=== PATIENT | male | born 1945 | race Caucasian/White ===

== ENCOUNTER 2017-05-12 12:21 | Inpatient (IN) | payer MEDICARE ==
[~2017-05-12] VITALS: Ht 172.7 cm; Wt 80.6 kg
[2017-05-12 12:29] VITALS: BP 151/67; PULSE 84; RESP 16; TEMP 98.5; O2SAT 94
[2017-05-12] MEDS ORDERED: DONE10TA7 PO (13:10)
[2017-05-12] MEDS ORDERED: METO25TA3 PO (13:10)
[2017-05-12] MEDS ORDERED: LORA-474 PO (13:10)
[2017-05-12] MEDS ORDERED: NAME10TA PO (13:10)
[2017-05-12] MEDS ORDERED: GABA400C5 PO (13:10)
[2017-05-12] MEDS ORDERED: ZOLO50TA PO (13:10)
[2017-05-12 13:43] LABS: AUTOMATED NEUTROPHIL # 5.8 TH/MM3 (1.8-7.7); BASOPHIL # 0.1 TH/MM3 (0-0.2); BASOPHIL % 0.7 % (0.0-2.0); EOSINOPHIL # 0.2 TH/MM3 (0-0.4); EOSINOPHIL % 2.6 % (0.0-4.0); HEMATOCRIT 36.4 % (39.0-51.0); HEMO FLAGS DIFF FINAL; LYMPH % 30.1 % (9.0-44.0); LYMPHOCYTE # 2.9 TH/MM3 (1.0-4.8); MEAN CELL VOLUME 87.9 FL (80.0-100.0); MONO % 5.5 % (0.0-8.0); NEUT % 61.1 % (16.0-70.0); PLATELET COUNT 410 TH/MM3 (150-450); RED BLOOD COUNT 4.14 MIL/MM3 (4.50-5.90); RED CELL DISTRIBUTION WIDTH 13.7 % (11.6-17.2); WHITE BLOOD COUNT 9.6 TH/MM3 (4.0-11.0)
--- NOTE | 2017-05-12 14:02 | PD ---
HPI Chief Complaint: Psychiatric Symptoms Time Seen by Provider: 12:47 Travel History International Travel<30 days: No Contact w/Intl Traveler<30days: No Traveled to known affect area: No History of Present Illness HPI 71-year-old male was Mcbride acted and brought in for psychiatric evaluation. Patient was reportedly threatened to harm himself. Patient has history of depression. Patient however upon arrival to ED stated he does not want to harm himself. Patient states that he was just talking. Patient denies any headache. Patient denies any chest pain or shortness of breath. Patient denies abdominal pain. Patient denies any focal weakness and numbness of extremity. Patient states that he had 3 beers today. Patient denies any illicit drug abuse. [facility] Social History Alcohol Use: Yes (REPORTS RARE USE) Tobacco Use: Yes Substance Use: No (MARIJUANA) Allergies-Medications (Allergen,Severity, Reaction): Coded Allergies: No Known Allergies (Unverified , 05/12/17) Reported Meds & Prescriptions Reported Meds & Active Scripts Active Reported Gabapentin 400 Mg Cap 400 Cap PO BID Metoprolol Tartrate 25 Mg Tab 12.5 Mg PO BID Donepezil 10 Mg Tab 10 Mg PO HS Ativan (Lorazepam) 1 Mg Tab 1 Mg PO BID PRN Zoloft (Sertraline HCl) 50 Mg Tab 50 Mg PO DAILY Namenda (Memantine) 10 Mg Tab 10 Mg PO BID Review of Systems General / Constitutional: No: Fever Eyes: No: Visual changes HENT: No: Headaches Cardiovascular: No: Chest Pain or Discomfort Respiratory: No: Shortness of Breath Gastrointestinal: No: Abdominal Pain Genitourinary: No: Dysuria Musculoskeletal: No: Pain Skin: No Rash Neurologic: No: Weakness Psychiatric: No: Depression Endocrine: No: Polydipsia Hematologic/Lymphatic: No: Easy Bruising Physical Exam Narrative GENERAL: Well-nourished, well-developed patient. SKIN: Focused skin assessment warm/dry. HEAD: Normocephalic. EYES: No scleral icterus. No injection or drainage. NECK: Supple, trachea midline. No JVD or lymphadenopathy. CARDIOVASCULAR: Regular rate and rhythm without murmurs, gallops, or rubs. RESPIRATORY: Breath sounds equal bilaterally. No accessory muscle use. GASTROINTESTINAL: Abdomen soft, non-tender, nondistended. MUSCULOSKELETAL: No cyanosis, or edema. BACK: Nontender without obvious deformity. No CVA tenderness. Neurologic exam: Patient is awake and alert oriented to place and person. Patient moves all extremity well. No obvious focal neurological deficit. Data Data Last Documented VS Vital Signs Date Time Temp Pulse Resp B/P Pulse Ox O2 Delivery O2 Flow Rate FiO2 05/12/17 12:29 98.5 84 16 151/67 94 Orders Complete Blood Count With Diff (05/12/17 13:13) Comprehensive Metabolic Panel (05/12/17 13:13) Psych Screen (05/12/17 13:13) Alcohol (Ethanol) (05/12/17 13:58) Labs Laboratory Tests Test 05/12/17 13:00 White Blood Count 9.6 TH/MM3 Red Blood Count 4.14 MIL/MM3 Hemoglobin 12.0 GM/DL Hematocrit 36.4 % Mean Corpuscular Volume 87.9 FL Mean Corpuscular Hemoglobin 29.0 PG Mean Corpuscular Hemoglobin 33.0 % Concent Red Cell Distribution Width 13.7 % Platelet Count 410 TH/MM3 Mean Platelet Volume 7.5 FL Neutrophils (%) (Auto) 61.1 % Lymphocytes (%) (Auto) 30.1 % Monocytes (%) (Auto) 5.5 % Eosinophils (%) (Auto) 2.6 % Basophils (%) (Auto) 0.7 % Neutrophils # (Auto) 5.8 TH/MM3 Lymphocytes # (Auto) 2.9 TH/MM3 Monocytes # (Auto) 0.5 TH/MM3 Eosinophils # (Auto) 0.2 TH/MM3 Basophils # (Auto) 0.1 TH/MM3 CBC Comment DIFF FINAL Differential Comment Sodium Level 139 MEQ/L Potassium Level 4.2 MEQ/L Chloride Level 106 MEQ/L Carbon Dioxide Level 25.4 MEQ/L Anion Gap 8 MEQ/L Blood Urea Nitrogen 8 MG/DL Creatinine 1.07 MG/DL Estimat Glomerular Filtration 68 ML/MIN Rate Random Glucose 96 MG/DL Calcium Level 8.5 MG/DL Total Bilirubin 0.1 MG/DL Aspartate Amino Transf 18 U/L (AST/SGOT) Alanine Aminotransferase 19 U/L (ALT/SGPT) Alkaline Phosphatase 80 U/L Total Protein 7.8 GM/DL Albumin 3.3 GM/DL Ethyl Alcohol Level 81 MG/DL MDM Medical Decision Making Medical Screen Exam Complete: Yes Emergency Medical Condition: Yes Interpretation(s) 1540 p.m. CBC within normal limit. CMP within normal limit. Alcohol 81 Differential Diagnosis Differential diagnosis including organic brain syndrome, depression, suicidal. Narrative Course 71-year-old male was Mcbride acted after threatened to harm himself. 1541 PM. Patient is medical cleared for psychiatric evaluation and disposition. Constantine De Anda MD May 12, 2017 14:02
[2017-05-12 14:10] LABS: ALT (GPT) 19 U/L (12-78); ANION GAP 8 MEQ/L (5-15); AST (GOT) 18 U/L (15-37); BICARBONATE 25.4 MEQ/L (21.0-32.0); BLOOD UREA NITROGEN 8 MG/DL (7-18); CHLORIDE 106 MEQ/L (98-107); GLOMERULAR FILTRATION RATE 68 ML/MIN (>89); POTASSIUM 4.2 MEQ/L (3.5-5.1); SODIUM (NA) 139 MEQ/L (136-145)
[2017-05-12 14:12] LABS: ALKALINE PHOSPHATASE 80 U/L (45-117); TOTAL BILIRUBIN ADULT 0.1 MG/DL (0.2-1.0)
[2017-05-12 16:46] VITALS: BP 132/68; PULSE 80; RESP 18; O2SAT 98
[2017-05-12 18:09] VITALS: BP 132/68; PULSE 80; RESP 18; O2SAT 80
[2017-05-12] MEDS ORDERED: PILL SPLITTER OTHER PRN (19:45)
[2017-05-12] MEDS ORDERED: FLUMAZENIL 0.5 MG/5 ML VIAL IV PUSH PRN (19:45)
[2017-05-12] MEDS ORDERED: LORazepam 1 MG TAB PO PRN (19:45)
[2017-05-12] MEDS ORDERED: LORazepam 2 MG/ML VIAL IV PUSH PRN ×4 (19:45)
[2017-05-12] MEDS ORDERED: LORazepam 2 MG TAB PO PRN (19:45)
[2017-05-12 19:47] VITALS: O2SAT 95
[2017-05-12] MEDS: SERTRALINE HCL 50 MG TAB PO SCH (19:53)
[2017-05-12] MEDS ORDERED: diphenhydrAMINE HCL 50 MG CAP - HS PRN PO (20:00)
[2017-05-12] MEDS ORDERED: ALUMINUM/MAGNESIUM/SIMETH 30 ML CUP PO PRN (20:00)
[2017-05-12] MEDS ORDERED: diphenhydrAMINE HCL 50 MG/ML VIAL - HS PRN IM (20:00)
[2017-05-12] MEDS ORDERED: MAGNESIUM HYDROXIDE SUSP 30 ML CUP PO PRN (20:00)
[2017-05-12] MEDS ORDERED: ACETAMINOPHEN 325 MG TAB PO PRN (20:00)
[2017-05-12] MEDS: GABAPENTIN 400 MG CAP PO SCH (20:46)
[2017-05-12] MEDS: METOPROLOL TARTRATE 25 MG TAB PO SCH (20:46)
[2017-05-12] MEDS: MEMANTINE HCL 10 MG TAB PO SCH (20:47)
[2017-05-12] MEDS ORDERED: DONEPEZIL HCL 5 MG TAB PO SCH (21:00)
[2017-05-12 21:07] VITALS: BP 132/60; PULSE 74; RESP 18; TEMP 96.5; O2SAT 95
[2017-05-13 06:23] VITALS: BP 122/58; PULSE 66; RESP 16; TEMP 97.2; O2SAT 96
[2017-05-13 08:52] LABS: ANION GAP 5 MEQ/L (5-15); BICARBONATE 29.5 MEQ/L (21.0-32.0); BLOOD UREA NITROGEN 11 MG/DL (7-18); CHLORIDE 106 MEQ/L (98-107); GLOMERULAR FILTRATION RATE 81 ML/MIN (>89); POTASSIUM 4.1 MEQ/L (3.5-5.1); SODIUM (NA) 140 MEQ/L (136-145)
[2017-05-13 08:56] LABS: HDL CHOLESTEROL 33.8 MG/DL (40.0-60.0); LDL CHOLESTEROL 114 MG/DL (0-99)
[2017-05-13] MEDS: MEMANTINE HCL 10 MG TAB PO SCH ×2 (08:57→21:23)
[2017-05-13] MEDS: GABAPENTIN 400 MG CAP PO SCH ×2 (08:57→21:00)
[2017-05-13] MEDS: SERTRALINE HCL 50 MG TAB PO SCH (08:57)
[2017-05-13] MEDS: METOPROLOL TARTRATE 25 MG TAB PO SCH ×2 (08:58→21:00)
[2017-05-13] MEDS: NICOTINE 21 MG/24 HR PATCH T-DERMAL SCH (08:58)
[2017-05-13] MEDS ORDERED: hydrOXYzine HCL 50 MG TAB PO PRN (11:45)
[2017-05-13] MEDS ORDERED: ALUMINUM/MAGNESIUM/SIMETH 30 ML CUP PO PRN (11:45)
[2017-05-13] MEDS ORDERED: diphenhydrAMINE HCL 50 MG CAP PO PRN (11:45)
[2017-05-13] MEDS ORDERED: ACETAMINOPHEN 325 MG TAB PO PRN (11:45)
[2017-05-13] MEDS ORDERED: MAGNESIUM HYDROXIDE SUSP 30 ML CUP PO PRN (11:45)
--- NOTE | 2017-05-13 12:00 | HHI.HP ---
Provisional Diagnosis Admission Date May 12, 2017 at 18:47 [place]. 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 Express and informed consent means consent voluntarily given in writing, by a competent person, after sufficient explanation and disclosure of the subject matter involved to enable the person to make a knowing and willful decision without any element of force, fraud, deceit, duress, or other form of constraint or coercion. This person is 18 years of age or older, is not now known to be incompetent to consent to treatment with a guardian advocate, and does not have a health care surrogate or proxy currently making medical treatment decisions. I have found this person to be one of the following: [] Competent to provide express and informed consent, as defined above, for voluntary admission to this facility and is competent to provide express and informed consent for treatment. He/she has the consistent capacity to make well reasoned, willful, and knowing decisions concerning his or her medical or mental health treatment. The person fully and consistently understands the purpose of the admission for examination/placement and is fully capable of personally exercising all rights assured [place] [] Incompetent to provide express and informed consent to voluntary admission, and this is incompetent to provide express and informed consent to treatment. The person must be transferred to involuntary status and a petition for a guardian advocate filed with the Circuit Court. [xx] Refusing to provide express and informed consent to voluntary admission but is competent to provide express and informed consent for treatment. The person must be discharged or transferred to involuntary status. Form shall be completed within 24 hours of a person's arrival at the receiving facility and filed in the clinical record of each person: 1. Admitted on a voluntary basis 2. Permitted to provide express and informed consent to his/her own treatment 3. Allowed to transfer from involuntary to voluntary status 4. Prior to permitting a person to consent to his or her own treatment after having been previously found incompetent to consent to treatment. History of Present Illness Capacity: Lacks Capacity (patient less capacity to sign for admission, has capacity to sign for medications) HPI Patient is a 71-year-old white male who comes the ED under Mcbride act by the [facility]'s office dated 05/12/17 at 11:30 AM the document reviewed essentially stated that contact was made with Lisandro advised that he is not taking his prescribed medication (antidepressant) but today he advised that he had taken sleeping medication and drank approximately 3 beers. Amelia Briggs was on the scene advised that checked made the comment that he doesn't care and if he dies that he is going to keep drinking. Amelia also stated that checked damion fist at her advised that he has never had a woman but she will be the first. I have been asked Lisandro if he made the statement that he doesn't care if he dies and he stated that he did. Being that Lisandro mixed medication and alcohol and refuses to take his antidepressants he was placed under Mcbride act. Without proper care it is believed that check will attempt to harm himself or others. Patient seen screened in the ED blood alcohol level of 81, there is no urine toxicology done. Patient is transferred to the unit for further care and attention. Patient was seen in the small office with nurse Garrido present throughout session. Patient was alert irritable challenging demanding and somewhat entitled. He was minimizing and rationalizing all of this behaviors as described in the Mcbride act and then the psychiatric screening. Told his blood alcohol level he basically refused to accept it stating he'll he had 2 beers. 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 Later on in the interview he acknowledged being in a detox the end of [address] [facility]. He does acknowledge being an alcoholic he states is been a multiple detoxes multiple rehabs has blacked out and passed out from drinking, he states he has had at least 2 or 3 or 4 DUIs in the past with incarceration. He denies other legal issues. He states his change as needed [place]. He denies any physical or sexual abuse as a child. He denies having any children of his own. He states he lives though woman" daughter. But he does have a second cousin that he calls his stepdaughter. Patient also acknowledges occasional marijuana use the last being about a week ago. He is vague contradictory about any past psychiatric contact though he is prescribed Zoloft per the med reconciliation. Is also vague about any past medical history. Though he does state that he supposedly her doctors talking was hospitalized a few years ago stated that he was going to and 3 days. Today he denies suicidality homicidality voices or visions. Though there is a somewhat disorganized manner and his speech is quite contradictory times somewhat confusing. At this time I feel patient does meet criteria for further observation assessment under the Mcbride act. We have also initiated the ciwa protocol with them he did receive a dose of Ativan under that about 9 PM last night. I feel and further observation for withdrawal symptoms and monitor his mental status is advisable for at least another 24 hours. When I would the patient this he became somewhat angry asked to see his retail inventory control clerk immediately I told him he has a right to contact his retail inventory control clerk. He later threatened to ana cristina all of us. In any event we'll continue this hospitalization we'll continue the ciwa protocol and reassess tomorrow morning we'll continues medications per the med reconciliation Review of Systems Constitutional: DENIES: Diaphoretic episodes, Fatigue, Fever, Weight gain, Weight loss, Chills, Dizziness, Change in appetite, Night Sweats Endocrine: DENIES: Heat/cold intolerance, Polydipsia, Polyuria, Polyphagia Eyes: DENIES: Blurred vision, Diplopia, Eye inflammation, Eye pain, Vision loss , Photosensitivity, Double Vision Ears, nose, mouth, throat: DENIES: Tinnitus, Hearing loss, Vertigo, Nasal discharge, Oral lesions, Throat pain, Hoarseness, Ear Pain, Running Nose, Epistaxis, Sinus Pain, Toothache, Odynophagia Respiratory: DENIES: Apneas, Cough, Snoring, Wheezing, Hemoptysis, Sputum production, Shortness of breath Cardiovascular: DENIES: Chest pain, Palpitations, Syncope, Dyspnea on Exertion , PND, Lower Extremity Edema, Orthopnea, Claudication Gastrointestinal: DENIES: Abdominal pain, Black stools, Bloody stools, Constipation, Diarrhea, Nausea, Vomiting, Difficulty Swallowing, Anorexia Genitourinary: DENIES: Sexual dysfunction, Urinary frequency, Urinary incontinence, Urgency, Hematuria, Dysuria, Nocturia, Penile Discharge, Testicular Pain, Testicular Swelling Musculoskeletal: DENIES: Joint pain, Muscle aches, Stiffness, Joint Swelling, Back pain, Neck pain Integumentary: DENIES: Abnormal pigmentation, Nail changes, Pruritus, Rash Hematologic/lymphatic: DENIES: Bruising, Lymphadenopathy Immunologic/allergic: DENIES: Eczema, Urticaria Neurologic: DENIES: Abnormal gait, Headache, Localized weakness, Paresthesias, Seizures, Speech Problems, Tremor, Poor Balance Psychiatric: COMPLAINS OF: Depression, Suicidal Ideation Past Psych History Psychological trauma history Denies physical or sexual abuse as a child Violence risk - others (6 mos) Patient states he's always had a short temper use his mouth persists before his brains Violence risk - self (6 mos) Patient made vague suicidal statements to police Substance Abuse History Drugs/Alcohol past 12 months Patient active alcohol abuser, states last use of marijuana about a week ago Past Family Social History Coded Allergies: No Known Allergies (Unverified , 05/12/17) Past Medical History Patient denies any significant medical history Reported Medications Gabapentin 400 Mg Eam415 Cap PO BID #30 CAP Ref 0 05/12/17 Metoprolol Tartrate 25 Mg Tab12.5 Mg PO BID #60 TAB Ref 0 05/12/17 Donepezil 10 Mg Tab10 Mg PO HS #30 TAB Ref 0 05/12/17 Lorazepam (Ativan)1 Mg Tab1 Mg PO BID PRN (ANXIETY AND/OR AGITATION) Ref 0 05/12/17 Sertraline (Zoloft)50 Mg Tab50 Mg PO DAILY #30 TAB Ref 0 05/12/17 Memantine (Namenda)10 Mg Tab10 Mg PO BID #30 TAB Ref 0 05/12/17 Current Medications Medications (Trade) Dose Ordered Sig/Sen Route Start Time Stop Time Status Last Admin (Ativan) 1 mg Q4H PRN PO 05/12/17 19:45 05/12/17 20:47 (Ativan Inj) 1 mg Q4H PRN IV PUSH 05/12/17 19:45 (Ativan) 2 mg Q2H PRN PO 05/12/17 19:45 (Ativan Inj) 2 mg Q2H PRN IV PUSH 05/12/17 19:45 (Ativan Inj) 2 mg Q1H PRN IV PUSH 05/12/17 19:45 (Ativan Inj) 2 mg Q15M PRN IV PUSH 05/12/17 19:45 (Romazicon Inj) 0.2 mg Q1M PRN IV PUSH 05/12/17 19:45 (Lopressor) 12.5 mg BID PO 05/12/17 21:00 05/13/17 08:58 (Pill Splitter) 1 ea UNSCH PRN OTHER 05/12/17 19:45 (Neurontin) 400 mg BID PO 05/12/17 21:00 05/13/17 08:57 (Namenda) 10 mg BID PO 05/12/17 21:00 05/13/17 08:57 (Zoloft) 50 mg DAILY PO 05/12/17 19:47 05/13/17 08:57 (Aricept) 10 mg HS PO 05/12/17 21:00 05/12/17 20:46 (Benadryl) 50 mg HS PRN PO 05/12/17 20:00 05/12/17 20:47 (Benadryl Inj) 50 mg HS PRN IM 05/12/17 20:00 (Tylenol) 650 mg Q4H PRN PO 05/12/17 20:00 (Milk Of Magnesia Liq) 30 ml DAILY PRN PO 05/12/17 20:00 (Mag-Al Plus Susp Liq) 30 ml Q6H PRN PO 05/12/17 20:00 (Habitrol 21 Mg Patch.24 Hr) 1 patch DAILY T-DERMAL 05/13/17 09:00 Miscellaneous Information 1 HS T-DERMAL 05/13/17 21:00 Family History Patient's history of alcohol related issues and family Social History Patient not has no children this is a woman of the woman's adult daughter Patient's Strengths (min. 2) Patient verbal anaphylaxis health care Physical Exam Patient seen screened in ED exam reviewed and agreed with patient sitting in chair in small office with nurse Radhika present no acute distress somewhat slouched over and with and entitled irritating attitude is in no respiratory distress, no complaints of abdominal pain. Move all 4 extremities without difficulty no abnormal motor movements noted no significant tremors noted Vital Signs Vital Signs Date Time Temp Pulse Resp B/P Pulse Ox O2 Delivery O2 Flow Rate FiO2 05/13/17 06:23 97.2 66 16 122/58 96 05/12/17 19:47 Room Air Mental Status Examination Alert fairly well oriented white male appears stated age sitting in a angry irritable demanding manipulative attitude that he somewhat condescending Patric and entitled. With poor to fair eye contact Appearance Somewhat disheveled Speech: Fast, Tangential Orientation: x3 Memory: Unremarkable (fair) Thought Process: Circumstantial, Linear Thought Content: Paranoid Language Fair Fund of Knowledge Fair Hallucination Type: None (denies) Attention and Concentration: Other (fair) Suicidal Ideation: Yes (patient is vague suicidal statements to police) Previous Suicide Attempts: No (denies) Homicidal Ideation: No (denies) Previous Homicide Attempts: No (denies) Insight: Poor Judgment: Poor Affect: Other (increase range and intensity) Mood: Angry, Oppositional, Irritable Motor Activity: Normal gait Assessment & Plan Problem List: (1) Adjustment disorder with mixed disturbance of emotions and conduct ICD Code: F43.25 (2) Alcohol abuse ICD Code: F10.10 Assessment & Plan Estimated LOS: 2-3 days she meets criteria for brief continued inpatient psychiatric hospitalization under the Mcbride act. We'll continue his medications per the EMR and we will initiate the ciwa protocol. The patient shows improvement in the 24 hours we'll consider discharge at that time Discharge Planning To be determined Request HC Surrog/Guard Advoc?: Delroy Reveles MD May 13, 2017 12:00
[2017-05-13 15:24] LABS: AMPHETAMINE, URINE NEG (NEG); BARBITURATES, URINE NEG (NEG); COCAINE, URINE NEG (NEG)
[2017-05-13 16:06] LABS: HEMOGLOBIN A1a 1.1 %; HEMOGLOBIN A1b 1.6 %; HEMOGLOBIN Ao 84.6 %; HEMOGLOBIN LA1C 2.1 %; HEMOGLOBIN P3 3.8 %
[2017-05-13 18:00] VITALS: BP 141/64; PULSE 92; RESP 16; TEMP 98.5; O2SAT 91
[2017-05-13] MEDS ORDERED: REMOVE OLD NICODERM (NICOTINE) PATCH T-DERMAL SCH (21:00)
[2017-05-13] MEDS ORDERED: DONEPEZIL HCL 5 MG TAB PO SCH (21:00)
[2017-05-14 05:39] VITALS: BP 126/69; PULSE 94; RESP 20; TEMP 97.9; O2SAT 95
[2017-05-14] MEDS: MEMANTINE HCL 10 MG TAB PO SCH (09:00)
[2017-05-14] MEDS ORDERED: SERTRALINE HCL 50 MG TAB PO SCH (09:00)
[2017-05-14] MEDS: GABAPENTIN 400 MG CAP PO SCH (09:05)
[2017-05-14] MEDS: SERTRALINE HCL 50 MG TAB PO SCH (09:06)
[2017-05-14] MEDS: METOPROLOL TARTRATE 25 MG TAB PO SCH (09:06)
[2017-05-14] MEDS: NICOTINE 21 MG/24 HR PATCH T-DERMAL SCH (09:08)
--- NOTE | 2017-05-14 12:43 | HHI.DS ---
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 Amelia Chester was on the scene advised that remington made the comment that he doesn't care and if he dies that he is going to keep drinking. Amelia also stated that checked damion fist at her advised that he has never had a woman but she will be the first. I have been asked Lisandro if he made the statement that he doesn't care if he dies and he stated that he did. Being that Lisandro mixed medication and alcohol and refuses to take his antidepressants he was placed under Mcbride act. Without proper care it is believed that caleb will attempt to harm himself or others. Patient seen screened in the ED blood alcohol level of 81, there is no urine toxicology done. Patient is transferred to the unit for further care and attention. Patient was seen in the small office with nurse Garrido present throughout session. Patient was alert irritable challenging demanding and somewhat entitled. He was minimizing and rationalizing all of this behaviors as described in the Mcbride act and then the psychiatric screening. Told his blood alcohol level he basically refused to accept it stating he'll he had 2 beers. 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 Later on in the interview he acknowledged being in a detox the end of 2016 perhaps of [facility]. He does acknowledge being an alcoholic he states is been a multiple detoxes multiple rehabs has blacked out and passed out from drinking, he states he has had at least 2 or 3 or 4 DUIs in the past with incarceration. He denies other legal issues. He states his change as needed Sydney. He denies any physical or sexual abuse as a child. He denies having any children of his own. He states he lives though woman" daughter. But he does have a second cousin that he calls his stepdaughter. Patient also acknowledges occasional marijuana use the last being about a week ago. He is vague contradictory about any past psychiatric contact though he is prescribed Zoloft per the med reconciliation. Is also vague about any past medical history. Though he does state that he supposedly her doctors talking was hospitalized a few years ago stated that he was going to and 3 days. Today he denies suicidality homicidality voices or visions. Though there is a somewhat disorganized manner and his speech is quite contradictory times somewhat confusing. At this time I feel patient does meet criteria for further observation assessment under the Mcbride act. We have also initiated the ciwa protocol with them he did receive a dose of Ativan under that about 9 PM last night. I feel and further observation for withdrawal symptoms and monitor his mental status is advisable for at least another 24 hours. When I would the patient this he became somewhat angry asked to see his well surveying engineer immediately I told him he has a right to contact his well surveying engineer. He later threatened to ana cristina all of us. In any event we'll continue this hospitalization we'll continue the ciwa protocol and reassess tomorrow morning we'll continues medications per the med reconciliation Tobacco Use In Past 30 Days: 5 or More Cigarettes/Day Alcohol Use: Monthly or Less Hospital Course Patient was cooperative with the further observation I requested of him. He had a good night slept well is eating well this morning. His mood remains euthymic she is calm cooperative though still showing minimal processing of the role that alcohol is played in his life. He continues to denies suicidality homicidality voices or visions. At this time he no longer meets Mcbride criteria. Will discharge him to himself. The been no Rx by me. He may continue his own schedule medications at home. Follow-up PCP Strongly referral Manny Marchman act voluntary substance abuse assessment, strong recommendation absolute abstinence, strong recommendation AA Results Blood Pressure 126 / 69 Vital Signs Date Time Temp Pulse Resp B/P Pulse Ox O2 Delivery O2 Flow Rate FiO2 05/14/17 05:39 97.9 94 20 126/69 95 05/12/17 19:47 Room Air Laboratory Tests Test 05/12/17 05/13/17 05/13/17 13:00 07:52 12:30 Red Blood Count 4.14 MIL/MM3 (4.50-5.90) Hemoglobin 12.0 GM/DL (13.0-17.0) Hematocrit 36.4 % (39.0-51.0) Estimat Glomerular Filtration 68 ML/MIN (>89) 81 ML/MIN (>89) Rate Total Bilirubin 0.1 MG/DL (0.2-1.0) Albumin 3.3 GM/DL (3.4-5.0) Ethyl Alcohol Level 81 MG/DL (0-5) Hemoglobin A1c 6.2 % (4.3-6.0) Triglycerides Level 163 MG/DL (42-150) LDL Cholesterol 114 MG/DL (0-99) HDL Cholesterol 33.8 MG/DL (40.0-60.0) Urine Benzodiazepines Screen POS (NEG) Laboratory Results Test 05/13/17 07:52 Hemoglobin A1c 6.2 % (4.3-6.0) Triglycerides Level 163 MG/DL (42-150) Cholesterol Level 180 MG/DL (120-200) LDL Cholesterol 114 MG/DL (0-99) HDL Cholesterol 33.8 MG/DL (40.0-60.0) Summary of Procedures None done Pending results at discharge: No Medications # of Antipsychotic meds at D/C: 0 Approp Antipsych med options 1 - Minimum of three failed multiple trials of monotherapy. 2 - Documented plan to taper to monotherapy due to previous use of multiple meds OR cross-taper in progress at D/C. 3 - Documentation of augmentation of Clozapine. 4 - Justification other than those listed in allowable values 1-3, document here : Discharge Discharge Date: May 14, 2017 Discharge Diagnosis: (1) Adjustment disorder with mixed disturbance of emotions and conduct Diagnosis: Principal ICD Code: F43.25 (2) Alcohol abuse Diagnosis: Secondary ICD Code: F10.10 Mental Status Exam at Disch Alert oriented somewhat intense white male. He has normal active. His mood is euthymic, somewhat intense, with slight increase range intensity of his affect. Speech goal oriented rate and rhythm within normal limits, no formal thought. disorders. No auditory or visual hallucinations. No delusions. Though there is a marked minimization of his alcohol misuse. Cognition grossly intact Pt Condition on Discharge: Stable Discharge Disposition: Discharge Home Discharge Instructions Diet Instructions: As Tolerated, No Restrictions Activities you can perform: Weight Bearing as Greg Scheduled Appointment: Manny Zaragoza (also referred to Manny zaragoza voluntary outpatient substance abuse assessment, refer to AA, absolute abstinence) Discharge Time > 30 minutes Discharge/Advance Care Plan Health Problems: (1) Adjustment disorder with mixed disturbance of emotions and conduct (2) Alcohol abuse Goals to promote your health * To prevent worsening of your condition and complications * To maintain your health at the optimal level Directions to meet your goals Take your medications as prescribed Follow your dietary instruction Follow activity as directed Keep your appointments as scheduled Take your immunizations and boosters as scheduled If your symptoms worsen call your PCP, if no PCP go to Urgent Care Center or Emergency Room For 19/05 questions related to your inpatient stay or results of tests pending at discharge, please contact Dr. Delroy Sousa at Smoking is Dangerous to Your Health. Avoid second hand smoking Delroy Sousa MD May 14, 2017 12:43
== END 2017-05-14 14:00 | disposition home or self-care (01) | DRG 882 ==
LOC: NEPE 12:21 → NEDA 18:47 → H260 20:22
PROVIDERS: ADMIT Psychiatry & Neurology Psychiatry; ATTEND Psychiatry & Neurology Psychiatry
DX: F43.25 Adjustment disorder with mixed disturbance of emotions and conduct (principal); F10.10 Alcohol abuse, uncomplicated; Y90.4 Blood alcohol level of 80-99 mg/100 ml; Z72.0 Tobacco use
CPT/HCPCS: 80048; 80053; 80061; 80307; 83036; 85025; Q0163

== ENCOUNTER 2017-05-16 18:34 | Emergency (ER) | payer MEDICARE, OTHER ==
[~2017-05-16 18:34] MED LIST: DONE10TA7 PO; GABA400C5 PO; LORA-474 PO; METO25TA3 PO; NAME10TA PO; ZOLO50TA PO
[2017-05-16 18:56] VITALS: BP 133/76; PULSE 87; RESP 12; TEMP 98.8; O2SAT 97
--- NOTE | 2017-05-16 19:11 | PD ---
HPI Chief Complaint: Alcohol/Drug Intoxication Time Seen by Provider: 19:08 Travel History International Travel<30 days: No Contact w/Intl Traveler<30days: No Traveled to known affect area: No History of Present Illness HPI 71-year-old male presents to the emergency department under Marchman act by Alexandria ezCater for alcohol intoxication. Patient states he drank "a few beers". He states he does not want to be here in the hospital. He is unsure of his medical problems or medications he takes. He denies any medical complaints at this time. Patient is alert and oriented. He has no complaints. [facility] Past Medical History Medical History: Denies Significant Hx Immunizations Current: Yes Tetanus Vaccination: Unknown Past Surgical History Surgical History: No Previous Surgery Social History Alcohol Use: Yes (REPORTS RARE USE) Tobacco Use: Yes Substance Use: No (MARIJUANA) Allergies-Medications (Allergen,Severity, Reaction): Coded Allergies: No Known Allergies (Unverified , 05/12/17) Reported Meds & Prescriptions Reported Meds & Active Scripts Active Reported Gabapentin 400 Mg Cap 400 Cap PO BID Metoprolol Tartrate 25 Mg Tab 12.5 Mg PO BID Donepezil 10 Mg Tab 10 Mg PO HS Ativan (Lorazepam) 1 Mg Tab 1 Mg PO BID PRN Zoloft (Sertraline HCl) 50 Mg Tab 50 Mg PO DAILY Namenda (Memantine) 10 Mg Tab 10 Mg PO BID Review of Systems Except as stated in HPI: all other systems reviewed are Neg Physical Exam Narrative GENERAL: Well-nourished, well-developed elderly male patient, ambulatory. Afebrile. Patient has strong smell of alcohol on his breath. SKIN: Focused skin assessment warm/dry. No lacerations or abrasions. HEAD: Normocephalic. Atraumatic. EYES: No scleral icterus. No injection or drainage. NECK: Supple, trachea midline. No JVD or lymphadenopathy. CARDIOVASCULAR: Regular rate and rhythm without murmurs, gallops, or rubs. RESPIRATORY: Breath sounds equal bilaterally. No accessory muscle use. Lungs sounds are clear to auscultation. GASTROINTESTINAL: Abdomen soft, non-tender, nondistended. MUSCULOSKELETAL: No cyanosis, or edema. BACK: Nontender without obvious deformity. No CVA tenderness. Data Data Last Documented VS Vital Signs Date Time Temp Pulse Resp B/P Pulse Ox O2 Delivery O2 Flow Rate FiO2 7/21/17 18:56 98.8 87 12 133/76 97 Orders Complete Blood Count With Diff (05/16/17 19:08) Comprehensive Metabolic Panel (05/16/17 19:08) Alcohol (Ethanol) (05/16/17 19:08) Labs Laboratory Tests Test 05/16/17 19:33 White Blood Count 14.6 TH/MM3 Red Blood Count 4.27 MIL/MM3 Hemoglobin 12.3 GM/DL Hematocrit 37.4 % Mean Corpuscular Volume 87.7 FL Mean Corpuscular Hemoglobin 28.7 PG Mean Corpuscular Hemoglobin 32.7 % Concent Red Cell Distribution Width 13.9 % Platelet Count 403 TH/MM3 Mean Platelet Volume 7.4 FL Neutrophils (%) (Auto) 78.5 % Lymphocytes (%) (Auto) 15.3 % Monocytes (%) (Auto) 5.3 % Eosinophils (%) (Auto) 0.4 % Basophils (%) (Auto) 0.5 % Neutrophils # (Auto) 11.5 TH/MM3 Lymphocytes # (Auto) 2.2 TH/MM3 Monocytes # (Auto) 0.8 TH/MM3 Eosinophils # (Auto) 0.1 TH/MM3 Basophils # (Auto) 0.1 TH/MM3 CBC Comment DIFF FINAL Differential Comment Sodium Level 137 MEQ/L Potassium Level 3.9 MEQ/L Chloride Level 104 MEQ/L Carbon Dioxide Level 24.5 MEQ/L Anion Gap 9 MEQ/L Blood Urea Nitrogen 14 MG/DL Creatinine 0.92 MG/DL Estimat Glomerular Filtration 81 ML/MIN Rate Random Glucose 96 MG/DL Calcium Level 8.6 MG/DL Total Bilirubin 0.3 MG/DL Aspartate Amino Transf 21 U/L (AST/SGOT) Alanine Aminotransferase 16 U/L (ALT/SGPT) Alkaline Phosphatase 92 U/L Total Protein 7.7 GM/DL Albumin 3.4 GM/DL Ethyl Alcohol Level 201 MG/DL [facility] Medical Decision Making Medical Screen Exam Complete: Yes Emergency Medical Condition: Yes Medical Record Reviewed: Yes Differential Diagnosis alcohol intoxication versus substance abuse versus electrolyte abnormality Narrative Course 71-year-old male presents to the emergency Department under act by Alexandria ezCater for alcohol intoxication. CBC, CMP, alcohol level are ordered and pending. CBC shows leukocytosis 14.6. CMP shows no acute abnormality. Alcohol level is 201. Patient is able to the emergency department has no complaints. Patient will be allowed to rest in the emergency department until sobriety is demonstrated or until he has a ride home. Diagnosis Primary Impression: Alcohol intoxication Qualified Code: F10.920 - Alcohol intoxication, uncomplicated Referrals: Primary Care Physician [facility] Patient Instructions: Alcohol Intoxication (ED), General Instructions Additional Instructions: Follow-up with your primary care physician. Return to the emergency department for any acute worsening of symptoms. Med/Other Pt SpecificInfo: No Change to Meds Disposition: 01 DISCHARGE HOME Condition: Stable MykelTika May 16, 2017 19:11
[2017-05-16 19:57] LABS: AUTOMATED NEUTROPHIL # 11.5 TH/MM3 (1.8-7.7); BASOPHIL # 0.1 TH/MM3 (0-0.2); BASOPHIL % 0.5 % (0.0-2.0); EOSINOPHIL # 0.1 TH/MM3 (0-0.4); EOSINOPHIL % 0.4 % (0.0-4.0); HEMATOCRIT 37.4 % (39.0-51.0); HEMO FLAGS DIFF FINAL; LYMPH % 15.3 % (9.0-44.0); LYMPHOCYTE # 2.2 TH/MM3 (1.0-4.8); MEAN CELL VOLUME 87.7 FL (80.0-100.0); MEAN CORPUSCULAR HEMOGLOBIN 28.7 PG (27.0-34.0); MEAN CORPUSCULAR HGB CONC 32.7 % (32.0-36.0); MONO % 5.3 % (0.0-8.0); NEUT % 78.5 % (16.0-70.0); PLATELET COUNT 403 TH/MM3 (150-450); RED BLOOD COUNT 4.27 MIL/MM3 (4.50-5.90); RED CELL DISTRIBUTION WIDTH 13.9 % (11.6-17.2); WHITE BLOOD COUNT 14.6 TH/MM3 (4.0-11.0)
[2017-05-16 20:17] LABS: ANION GAP 9 MEQ/L (5-15); AST (GOT) 21 U/L (15-37); BICARBONATE 24.5 MEQ/L (21.0-32.0); BLOOD UREA NITROGEN 14 MG/DL (7-18); CHLORIDE 104 MEQ/L (98-107); GLOMERULAR FILTRATION RATE 81 ML/MIN (>89); POTASSIUM 3.9 MEQ/L (3.5-5.1); SODIUM (NA) 137 MEQ/L (136-145)
[2017-05-16 20:19] LABS: ALT (GPT) 16 U/L (12-78)
[2017-05-16 20:20] LABS: ALKALINE PHOSPHATASE 92 U/L (45-117); TOTAL BILIRUBIN ADULT 0.3 MG/DL (0.2-1.0)
== END 2017-05-16 21:20 | disposition home or self-care (01) ==
LOC: NEDAMB 18:34
DX: F10.120 Alcohol abuse with intoxication, uncomplicated (principal); Y90.7 Blood alcohol level of 200-239 mg/100 ml
CPT/HCPCS: 80053; 80307; 85025; 99283